=== PATIENT | female | born 1965 | race African-American/Black ===

== ENCOUNTER 2023-06-09 08:46 | Emergency (ER) | payer OTHER, MEDICAID ==
[2023-06-09 10:26] LABS: SARS-CoV-2 NAA Rapid Test Not Detected (NotDetected)
== END 2023-06-09 11:27 | disposition home or self-care (01) ==
LOC: CSHERS 08:46
DX: J34.89 Other specified disorders of nose and nasal sinuses (principal); B34.9 Viral infection, unspecified; I10 Essential (primary) hypertension; Z20.822 Contact with and (suspected) exposure to COVID-19
CPT/HCPCS: 99283